=== PATIENT | male | born 1960 | race Caucasian/White ===

== ENCOUNTER 2018-09-18 12:49 | Emergency (ER) | payer BC ==
[2018-09-18 13:05] VITALS: BP 122/90
--- NOTE | 2018-09-18 13:14 | ED Physician Chart ---
ED Chief Complaint/HPI - Patient Information Date Seen:: 09/18/18 Time Seen:: 13:00 Chief Complaint:: palpitations History of Present Illness:: He developed a rapid heartbeat 15 minutes ago. He then took another 150 mg of Cardizem orally. 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 Patient denies chest pain. He has numbness of his face and arms which usually occurs when he has an episode of atrial reentrant tachycardia. Patient states that adenosine is not effective in converting his tachycardia but Cardizem 10 mg IV is. Allergies:: Allergies Allergy/AdvReac Type Severity Reaction Status Date / Time No Known Allergies Allergy Verified 09/18/18 13:06 Vitals:: Vital Signs - 8 hr 09/18/18 09/18/18 12:54 13:05 Temp 97.5 F HR 130 RR 18 BP 122/90 122/90 O2 Sat % 97 Historian:: Patient Review:: Nurse's Note Reviewed ED Review of Systems - Review of Systems General/Constitutional: No fever, No chills Skin: No skin lesions Head: No headache Eyes: No loss of vision ENT: No earache Neck: No neck pain, No swelling Cardio Vascular: No chest pain, Palpitations Pulmonary: No cough, No wheezing GI: No nausea, No vomiting, No diarrhea G/U: No dysuria Musculoskeletal: No bone or joint pain, No muscle pain Endocrine: No polyuria, No polydipsia Psychiatric: No prior psych history Allergic/Immuno: No urticaria, No angioedema Neurological: No syncope, No focal symptoms ED Past Medical History - Past Medical History Past Medical History: HTN, Other (atrial reentrant tachycardia) Social History: Non Smoker, No Alcohol Surgical History: None Psychiatricy History: None Medication: Reviewed Family Medical History - Family Member Mother Ethnicity: Non- Hx Family Stroke: Yes ED Physical Exam - Physical Examination General/Constitutional: Awake, Well-developed, well-nourished, Alert, No distress, GCS 15, Non-toxic appearing, Ambulatory Head: Atraumatic Eyes: Lids, conjuctiva normal, PERRL, EOMI Skin: Nl inspection, No rash, No skin lesions, No ecchymosis, Well hydrated, No lymphadenopathy ENMT: External ears, nose nl, Nasal exam nl, Lips, teeth, gums nl Neck: Nontender, Full ROM w/o pain, No JVD, No nuchal rigidity, No bruit, No mass, No stridor Respiratory: Nl effort/Exclusion, Clear to Auscultation, No Wheeze/Rhonchi/Rales Cardio Vascular: No murmur, gallop, rubs Other Cardio Vascular comments:: Regular rapid rhythm GI: No tenderness/rebounding/guarding, No organomegaly, No hernia, Normal BS's, Nondistended, No mass/bruits, No McBurney tenderness : No CVA tenderness Extremities: No tenderness or effusion, Full ROM, normal strength in all extremities, No edema, Normal digits & nails Neuro/Psych: Alert/oriented, Normal gait, No focal deficits Misc: No paraspinal tenderness ED Labs/Radiology/EKG Results - EKG Interpretations Rate & Rhythm: gestural tachycardia at a rate of 118 Comments:: ST depression and T inversion in the inferior leads; ST depression in the anterior leads ED Assessment - Assessment General Assessment: Patient was given Cardizem 10 mg intravenously after which his heart rate converted to a normal sinus rhythm with a rate of 75. The ST and T-wave changes noted on the first EKG subsided after converted to normal sinus rhythm. ED Septic Shock - . Is Septic Shock (SBP<90, OR Lactate>4 mmol\L) present?: No - <6hrs of presentation: Vital Signs: Vital Signs - 8 hr 09/18/18 09/18/18 12:54 13:05 Temp 97.5 F HR 130 RR 18 BP 122/90 122/90 O2 Sat % 97 ED Reassessment (Disposition) - Reassessment Reassessment Condition:: Improved - Diagnosis Diagnosis:: atrial re-entrant tachycardia - Aftercare/Follow up Instructions Aftercare/Follow-Up Instructions:: Refer to Discharge Instructions - Patient Disposition Discharge/Transfer:: Home Condition at Disposition:: Stable, Improved
[2018-09-18] MEDS ORDERED: Diltiazem 5 mg/mL 5mL Vial IVP STA (13:20)
[2018-09-18] MEDS ORDERED: Diltiazem 5 mg/mL 5mL Vial IVP ONE (13:26)
== END 2018-09-18 14:10 | disposition home or self-care (01) ==
LOC: ER 12:49
DX: I47.1 Supraventricular tachycardia (principal); I10 Essential (primary) hypertension
CPT/HCPCS: 90779; 93005; 96374; Z7502